=== PATIENT | male | born 1965 | race Caucasian/White ===

== ENCOUNTER 2023-06-22 08:58 | Observation (INO) ==
--- NOTE | 2023-05-27 12:52 | PAT Medication Instructions ---
Medication Instructions Date of Service May 27, 2023 Home Medications amlodipine 10 mg tablet 10 mg PO QPM ascorbic acid (vitamin C) 1,000 mg tablet (Vitamin C) 1 g PO QAM aspirin 81 mg capsule 81 mg PO QAM cartilage 40 mg-collagen II 10 mg-boron 5 mg-hyaluronate 3.3 mg tablet ([facility]) 1 tab PO QAM cholecalciferol (vitamin D3) 25 mcg (1,000 unit) tablet (Vitamin D3) 25 mcg PO QAM coQ10 (ubiquinol) 200 mg capsule 200 mg PO Q OTHER DAY gabapentin 800 mg tablet 800 mg PO TID PRN Pain methocarbamol 750 mg tablet 750 mg PO TID PRN Muscle Spasm multivitamin 1 tab PO QAM omega 4-ojb-rok-fish oil 300 mg-1,000 mg capsule (Fish Oil) 1 cap PO Q OTHER DAY saw palmetto 450 mg capsule 450 mg PO Q OTHER DAY vitamin C 45 mg-zinc citrate 3.75 mg-elderberry 50 mg chewable tablet ([facility]) 2 tab PO QAM STOP taking 2 weeks before surgery omega 6-azn-mon-fish oil 300 mg-1,000 mg capsule (Fish Oil) 1 cap PO Q OTHER DAY saw palmetto 450 mg capsule 450 mg PO Q OTHER DAY vitamin C 45 mg-zinc citrate 3.75 mg-elderberry 50 mg chewable tablet ([facility]) 2 tab PO QAM cartilage 40 mg-collagen II 10 mg-boron 5 mg-hyaluronate 3.3 mg tablet ([facility]) 1 tab PO QAM coQ10 (ubiquinol) 200 mg capsule 200 mg PO Q OTHER DAY DO NOT take the morning of surgery ascorbic acid (vitamin C) 1,000 mg tablet (Vitamin C) 1 g PO QAM cholecalciferol (vitamin D3) 25 mcg (1,000 unit) tablet (Vitamin D3) 25 mcg PO QAM multivitamin 1 tab PO QAM Take morning of surgery With a small sip of water, OTHERWISE NOTHING TO EAT OR DRINK AFTER MIDNIGHT: aspirin 81 mg capsule 81 mg PO QAM (unless surgeon directed otherwise) gabapentin 800 mg tablet 800 mg PO TID PRN Pain methocarbamol 750 mg tablet 750 mg PO TID PRN Muscle Spasm (if needed) Take evening before surgery amlodipine 10 mg tablet 10 mg PO QPM gabapentin 800 mg tablet 800 mg PO TID PRN Pain methocarbamol 750 mg tablet 750 mg PO TID PRN Muscle Spasm (if needed) Other Notes If you have any questions please call us at [phone] or [phone] or [phone] or [phone]
--- NOTE | 2023-06-03 11:33 | Anesthesiology Consultation ---
Date of Service June 03, 2023 Assessment & Plan (1) Encounter for pre-operative examination: Chart Review Chart Review: Acceptable Risk for Surgery (pending surgeon ordered PCP clearance ) and Patient seen in Pre Admission Testing - Awaiting PCP clearance 06/08/23 ([facility]- Dr. Demetrius Smith)- please fax preop testing to PCP per patient request - Patient is NOT an ideal OPJ candidate (currently 23 hour observation) Per PAT appt on 06/03/23, no recent illness/disease exposures, illness related symptoms, or recent illness/disease positive tests. Will leave to surgeon's discretion if preop Covid testing needed Teaching & Discussion Pre-Anesthesia Teaching/Discussion Notes: Instructed NPO after midnight before surgery,except medications with 15 cc of water. Medication instructions provided according to the PAT guidelines. History Surgery Operation Date: 06/22/23 07:00 Proposed Procedures p Right Total Hip Arthroplasty With Dual Mobility Implants - Vince Marvin MD Height/Weight Height: 5 ft 11 in Weight: 151.5 kg Allergies Allergy/AdvReac Type Severity Reaction Status Date / Time No Known Allergies Allergy Verified 05/23/23 15:01 Medications Home Medications Medication Instructions Recorded Confirmed Last Taken amlodipine 10 mg tablet 10 mg PO QPM 05/23/23 05/23/23 Unknown ascorbic acid (vitamin C) 1,000 mg 1 g PO QAM 05/23/23 05/23/23 Unknown tablet (Vitamin C) aspirin 81 mg capsule 81 mg PO QAM 05/23/23 05/23/23 Unknown cartilage 40 mg-collagen II 10 1 tab PO QAM 05/23/23 05/23/23 Unknown mg-boron 5 mg-hyaluronate 3.3 mg tablet ([facility]) cholecalciferol (vitamin D3) 25 25 mcg PO QAM 05/23/23 05/23/23 Unknown mcg (1,000 unit) tablet (Vitamin D3) coQ10 (ubiquinol) 200 mg capsule 200 mg PO Q OTHER DAY 05/23/23 05/23/23 Unknown gabapentin 800 mg tablet 800 mg PO TID PRN Pain 05/23/23 05/23/23 Unknown methocarbamol 750 mg tablet 750 mg PO TID PRN Muscle Spasm 05/23/23 05/23/23 Unknown multivitamin 1 tab PO QAM 05/23/23 05/23/23 Unknown omega 7-kya-pdv-fish oil 300 1 cap PO Q OTHER DAY 05/23/23 05/23/23 Unknown mg-1,000 mg capsule (Fish Oil) saw palmetto 450 mg capsule 450 mg PO Q OTHER DAY 05/23/23 05/23/23 Unknown vitamin C 45 mg-zinc citrate 3.75 2 tab PO QAM 05/23/23 05/23/23 Unknown mg-elderberry 50 mg chewable tablet ([employer]) Past Medical History Medical History History of COVID-19 09/2021--mild symptoms, no symptoms now Hypertension Morbid obesity with BMI of 45.0-49.9, adult Exercise / Class Metabolic Activity III < 4 Walking/Shop/Light housework (no chest pain or SOB with flat surface ambulation - uses cane outside and in public for support ) Past Family History Family History Other No family history of adverse response to anesthesia Past Surgical History Surgical History History of arthroscopy of knee History of surgery on wrist Past Anesthesia History No Hx of Anesthesia Complications and No Family Hx of Anesthesia Complications History of PONV No Hx of PONV and No Hx of Motion Sickness Social History Smoking Status: Never smoker Do You Dip or Chew Tobacco: No Hx Alcohol Use: No Hx Substance Use: No substance use type: does not use Review of Systems Patient denies chest pain, shortness of breath, dyspnea on exertion, reflux, cough, wheezing, palpitations. No hx of seizures, stroke, OR, apnea/snoring. No hx of blood clots or blood transfusions Physical Exam Vital Signs VITALS BP 120/77 P 80 TEMP 98.2 SP02 96% RESP 16 Constitutional no acute distress ENMT Mouth: no TMJ clicking Thyromental Distance: > or= 3.5 Finger Breadths (4.0) Mallampati Class: I Caps to side teeth/molars Neck + limited neck extension (mild) Respiratory normal respiratory effort; no respiratory distress Auscultation: lungs clear to auscultation bilaterally; no wheezes Cardiovascular Rate/Rhythm: regular rate and regular rhythm Heart Sounds: no murmur Vessels: no carotid bruit Musculoskeletal Spine: no pain with cervical ROM Extremities: extremities normal to inspection Psychiatric Orientation: alert Lab Results Anesthesia Preop Results Results Anesthesia Widget: WBC 8.85 K/ul (4.8-10.8) 06/03/23 Hgb 14.3 g/dl (14.0-18.0) 06/03/23 Hct 42.3 % (42.0-52.0) 06/03/23 Plt 341 K/uL (130-400) 06/03/23 Na 140 mmol/L (136-145) 06/03/23 K 4.4 mmol/L (3.5-5.1) 06/03/23 Cl 106 mmol/L (98-107) 06/03/23 CO2 27 mmol/L (21-32) 06/03/23 BUN 18 mg/dl (6-23) 06/03/23 Creat 0.74 mg/dl (0.6-1.4) 06/03/23 Glucose Level 98 mg/dl (70-99(Fasting)) 06/03/23 PT 10.7 Seconds (9.0-12.0) 06/03/23 PTT 28 Seconds (21-31) 06/03/23 INR 1.0 (0.9-1.1) 06/03/23 Urine Color Yellow 06/03/23 Urine Appearance Turbid (Clear) A 06/03/23 Urine pH 7.0 (4.5-7.5) 06/03/23 Urine Specific [place] 1.018 (1.000-1.030) 06/03/23 Urine Protein 1+ (Negative) H 06/03/23 Urine Glucose (UA) Negative (Negative) 06/03/23 Urine Ketones Negative (Negative) 06/03/23 Urine Blood 1+ (Negative) H 06/03/23 Urine Nitrite Negative (Negative) 06/03/23 Urine Bilirubin Negative (Negative) 06/03/23 Urine Urobilinogen Negative (Negative) 06/03/23 Urine Leukocyte Esterase 3+ (Negative) H 06/03/23 Urine WBC (Auto) >50 /hpf (0-5) H 06/03/23 Urine RBC (Auto) >20 /hpf (0-2) H 06/03/23 Urine Hyaline Casts (Auto) 0-2 /lpf (0-2) 06/03/23 Urine Epithelial Cells (Auto) 0-2 /hpf (0-2) 06/03/23 Urine Bacteria (Auto) 2+ (None Seen) H 06/03/23 Blood Type A Negative 06/03/23 Antibody Screen NEGATIVE 06/03/23 Testing Laboratory Results Surgeon's office informed of abnormal UA - will leave to surgeon's discretion with how to proceed/if treatment needed Electrocardiogram Date: 06/03/23 Findings: + NSR @ (75bpm ) Normal EKG per cardio Chest X-Ray Date: 06/03/23 Findings: + NAD
[~2023-06-22 08:58] MED LIST: BUPIVACAINE 0.5 % 5 MG/1 ML PF 10ML VIAL ONE
--- NOTE | 2023-06-22 09:07 | History & Physical Bridge Note ---
Date of Service June 22, 2023 History & Physical Bridge Note I have examined the patient, reviewed the History & Physical and in the interval since the performance of the History & Physical I have noted the following changes of clinical significance: consent and site verified.no changes noted
[2023-06-22] MEDS ORDERED: fentaNYL citrate PF 100 MCG/2 ML VIAL ONE ×2 (09:38→11:46)
[2023-06-22] MEDS ORDERED: PROPOFOL IV EMULSION 10 MG/ML 20 ML VIAL IV ONE ×4 (09:42→13:30)
[2023-06-22] MEDS: LR 500ML BOLUS, THEN 15ML/HR IV SCH (10:15)
[2023-06-22] MEDS: LR 60ML/HR IV SCH (10:16)
[2023-06-22] MEDS ORDERED: ATROPINE SULFATE 0.1 MG/ML 10ML SYR IV PRN (10:39)
[2023-06-22] MEDS ORDERED: ePHEDrine sulfate 50 MG/ML AMP IV PRN (10:39)
[2023-06-22] MEDS ORDERED: PROMETHAZINE HCL 6.25 MG in SODIUM CHLORIDE 0.9% 50 ML IV PRN (10:39)
[2023-06-22] MEDS ORDERED: MIDAZOLAM HCL 1 MG/ML 2ML VIAL ONE (10:55)
[2023-06-22] MEDS: ACETAMINOPHEN 500 MG TAB PO PRN (10:58)
[2023-06-22] MEDS: TRANEXAMIC ACID 1,000 MG **IV Pre-op IV SCH (10:58)
[2023-06-22] MEDS: ACETAMINOPHEN 500 MG TAB ONE (11:00)
[2023-06-22] MEDS: ceFAZolin 3000MG 3,000 MG/72.5 ML BAG IV SCH (11:35)
[2023-06-22] MEDS ORDERED: PHENYLEPHRINE 100MCG/ML 10ML SYR IV ONE (11:43)
[2023-06-22] MEDS ORDERED: ePHEDrine sulfate 50 MG/5 ML SYR ONE (11:43)
[2023-06-22] MEDS ORDERED: KETAMINE HCL INJ 50 MG/ML 10 ML VIAL ONE (11:52)
[2023-06-22] MEDS ORDERED: GLYCOPYRROLATE 0.2 MG/ML VIAL ONE (11:55)
[2023-06-22] MEDS: TRANEXAMIC ACID 1,000 MG **IV Intra-op IV SCH (13:13)
[2023-06-22] MEDS: ROPIVACAINE 0.5% HCL/PF 246 MG, Ketorolac (*for OR use only*) 30 MG, EPINEPHrine 30MG/3... INFIL SCH (13:31)
--- NOTE | 2023-06-22 13:42 | Post Operative Brief Note ---
Immediate Post Op Note v1 Date of Surgery June 22, 2023 Pre & Post Diagnosis Operation Date: 06/22/23 10:40 Pre-Op Diagnosis: Right Hip Degenerative Joint Disease Post-Op Diagnosis: Right Hip Degenerative Joint Disease I identified the patient and participated in the time-out.: Yes Procedure Operation Date: 06/22/23 10:40 Actual Procedures p Right Total Hip Arthroplasty With Dual Mobility Implants, uncemented(Right) - Vince Marvin MD Surgeon Vince Marvin MD Metal Window Screen Assembler LESTER/Navjot Estimated Blood Loss 300 Findings Consistent with Post-Op Diagnosis Severe osteoarthritis marked loose bodies osteochondral and the joint was huge labral tear incarcerated in the joint grade 4 disease throughout right hip Fluids See anesthesia report Complications None
--- NOTE | 2023-06-22 13:48 | Operative Report ---
Post Operative Report Pre & Post Diagnosis Operation Date: 06/22/23 10:40 Pre-Op Diagnosis: Right Hip Degenerative Joint Disease Post-Op Diagnosis: Right Hip Degenerative Joint Disease I identified the patient and participated in the time-out.: Yes Procedure Operation Date: 06/22/23 10:40 Actual Procedures p Right Total Hip Arthroplasty With Dual Mobility Implants, uncemented(Right) - Vince Marvin MD Surgeon Vince Marvin MD Mate First LESTER/Navjot Estimated Blood Loss 300 Findings Consistent with Post-Op Diagnosis Severe osteoarthritis marked loose bodies large incarcerated labral tear grade 4 disease throughout right hip Specimens Bone pathology Drains None Complications None Indications Severe pain marked obstruction by x-ray Description of Procedure After the patient was appropriate notified site verified consent verified antibiotics confirmed to be given the right lower extremity was prepped and draped use routine fashion of the patient was carefully positioned in the left lateral decubitus position padding all areas assessed due to his large size. This case is a high BMI case and there is a modified high complexity case m odifier 22. This required an extra amount of time multiple assistance and extra retractors. He also had severe disease with marked contracture and then a very poor stiff hip. A large incision was made based on the size of the patient. Full- thickness flaps raised IT band and gluteus lenin fascia was incised from the gluteus lenin insertion distally all the way up to 3 to 4 cm above the hip joint. Full-thickness flaps raised care taken to palpate the sciatic nerve deep retractor placed. It was leg was quite large the subcutaneous layer was quite thick. Short external rotators were identified and released they are quite contracted the short hip capsule was quite contracted was released the hip was dislocated. Femoral neck was resected. Capsule was released anteriorly and posteriorly off the acetabulum and off the femoral neck. Retractors placed serial reaming carried up above. Again there was marked obstruction of the labrum was incarcerated in the joint there is multiple osteochondral loose bodies grade 4 disease throughout the acetabulum and femoral neck. Serial reaming carried up to 54 to 54 cup impacted in appropriate anteversion inclination and a 6.5 x 30 screw was placed with excellent purchase. A trial reduction was carried out with a standard liner. Femur was then flexed internally rotated. Femur was then broached up to a size 6 and a size 6 trial carried out. Due to the fact that we can get a 8.5 neck length then we decided to transition the standard liner to a dual mobility based on the size. Once all this the trial implants were removed at the dual the area was irrigated with Betadine and Pulsavac the whole pouncing lathe operator seated and a dual mobility liner placed. The size 6 high offset stem with neck was impacted into position and then the 47 x 28 bipolar +8.5 ceramic head was placed. Reduction was carried out there was excellent stability in all planes the leg lengths were equal. The wound was irrigated with Betadine Pulsavac and then the capsule closed with #2 Vicryl short external rotators with the same the deep gluteus lenin and IT band fascia with #2 Vicryl the deep fat with #2 Vicryl to superficial fat with 2-0 Vicryl the skin with clips and retention sutures with 3-0 Prolene. Propria dressing applied the patient transferred recovery in satisfactory addition having tolerated the procedure well. EBL was 300 cc crystalloid per anesthesia summary of implants size 54 acetabular shell sector cup 36 x 6.5 screw dome cover 54 x 47 liner 6 high offset collared 47 x 28 bipolar 28+8.5 head these are all DePuy J&J implants. DVT prophylaxis start tomorrow. I attest to the content of the Intraoperative Record and any orders documented therein. Any exceptions are noted below.
--- NOTE | 2023-06-22 13:51 | Discharge Summary ---
Date of Service June 23, 2023 Principal Diagnosis Severe osteoarthritis right hip Discharge Data Allergies Allergy/AdvReac Type Severity Reaction Status Date / Time No Known Allergies Allergy Verified 06/22/23 09:39 Vaccinations None Consultations None Procedures Performed Operation Date: 06/22/23 10:40 Actual Procedures p Right Total Hip Arthroplasty With Dual Mobility Implants, uncemented(Right) - Vince Marvin MD Ordered Studies X-rays Hospital Course (1) Status post right hip replacement: Total Time Total Time Spent Total Time Spent (In Minutes): 5 Discharge Plan Discharge Items Reason For Visit: POST SURGICAL CARE Discharge Diagnosis: Same Condition on Discharge: Good Activity: Per Instructions section Lifting: Wait until after follow-up appointment Bathing: Keep incision dry Sexual Activity: Wait until after follow-up appointment Exercise/Sports: Wait until after follow-up appointment Weightbearing Comment: 50% as tolerated. Call non-emergency contact if: your temperature is above 101.5, your wound has increased redness, your wound has increased drainage and your wound pain has increased Follow-up/Referrals: PCP,NO [Primary Care Provider] - Addtl Attending Provider Instructions: DIET: * Resume previous diet. MEDICATIONS: * Please take your prescriptions as instructed at your pre-op appointment and/or see medication discharge instructions listed above. * If concerns develop, call your physician's office at . SPECIAL CARE INSTRUCTIONS: * Ice/Elevate as instructed. * Keep dressing clean, dry, intact. * Your surgical extremity may be discolored due to prepping agents used on the skin. A bluish-green tint is a normal variant and should not cause alarm. Call your doctor at [phone] if: * Temperature above 101 degrees * Pain not relieved by pain medicine ordered * There is increased drainage or redness from any incision * You have any unanswered questions, problems or concerns. FOLLOW UP VISIT: * If not already scheduled, please call the office at to schedule a follow-up appointment. Pending Studies at Discharge: Yes (Bone pathology) Stand-Alone Forms: My [facility] Medications and DC Order Prescriptions: No Action multivitamin Tablet 1 tab PO QAM ascorbic acid (vitamin C) [Vitamin C] 1,000 mg Tablet 1 g PO QAM methocarbamol 750 mg Tablet 750 mg PO TID PRN (Reason: Muscle Spasm) gabapentin 800 mg Tablet 800 mg PO TID PRN (Reason: Pain) amlodipine 10 mg Tablet 10 mg PO QPM saw palmetto 450 mg Capsule 450 mg PO Q OTHER DAY Patient Comments: takes in the am Rx Instructions: give with food (meal/snack) cholecalciferol (vitamin D3) [Vitamin D3] 25 mcg (1,000 unit) Tablet 25 mcg PO QAM omega 8-nti-ynz-fish oil [Fish Oil] 300-1,000 mg Capsule 1 cap PO Q OTHER DAY Patient Comments: takes in the am coQ10 (ubiquinol) 200 mg Capsule 200 mg PO Q OTHER DAY Joint Health 40-10-5-3.3 mg Tablet 1 tab PO QAM aspirin 81 mg Capsule 81 mg PO QAM Elderberry [facility] 45-3.75-50 mg Tablet,Chewable 2 tab PO QAM Admission Data Admit Date/Time: 06/22/23 13:57 Attending Provider: Vince Marvin Admit Provider: Vince Marvin Primary Care Provider: PCP,NO Other Providers: [facility]; [facility]
--- NOTE | 2023-06-22 13:51 | Operative Report ---
Post Operative Report Pre & Post Diagnosis Operation Date: 06/22/23 10:40 Pre-Op Diagnosis: Right Hip Degenerative Joint Disease Post-Op Diagnosis: Right Hip Degenerative Joint Disease I identified the patient and participated in the time-out.: Yes Procedure Operation Date: 06/22/23 10:40 Actual Procedures p Right Total Hip Arthroplasty With Dual Mobility Implants, uncemented(Right) - Vince Marvin MD Surgeon AISHWARYA Marvin MD Marshmallow Machine Worker LESTER/Navjot DA SILVA Estimated Blood Loss 300 Findings Consistent with Post-Op Diagnosis see operative report Specimens see operative report Drains none Complications none Disposition Accompanied Patient To Recovery: Yes Indications This 58 year old male presented to the office with complaints of persisting right hip pain. He had tried conservative care measures without improvement. He elected to proceed with surgical intervention after being educated about potential risks and outcomes. Preoperative imaging was obtained. Description of Procedure The patient was administered a spinal anesthetic and nerve block and was taken to the operating room where he was given sedation. He was prepped and draped in the usual sterile fashion. Please see Dr. Marvin's operative report for specifics of the procedure. I was present for the entire case from initial patient positioning through final wound closure. Assistance was provided in tissue retraction, hemostasis, trial implant placement, final implant placement, and final wound closure. The patient was taken to the recovery room in satisfactory condition. I attest to the content of the Intraoperative Record and any orders documented therein. Any exceptions are noted below.
--- NOTE | 2023-06-22 13:51 | Orthopedic Progress Note ---
Date of Service June 22, 2023 Subjective Tolerated right total replacement with spinal. Denies any chest pain shortness of breath fever chills nausea vomiting headache. Vital signs are stable he is afebrile. Neurovascular check is limited by spinal but shows active dorsiflexion of the ankle and toes as well as plantarflexion. Wound dressing clean dry and intact. X-rays pending. Family contacted. Results & Data Vital Signs (Past 12 Hours) Vital Signs Temp Pulse Resp BP Pulse Ox O2 Del Method 06/22/23 09:32 37.4 C 90 20 136/80 95 Room Air
--- NOTE | 2023-06-22 13:55 | Operative Report ---
Post Operative Report Pre & Post Diagnosis Operation Date: 06/22/23 10:40 Pre-Op Diagnosis: Right Hip Degenerative Joint Disease Post-Op Diagnosis: Right Hip Degenerative Joint Disease I identified the patient and participated in the time-out.: Yes Procedure Operation Date: 06/22/23 10:40 Actual Procedures p Right Total Hip Arthroplasty With Dual Mobility Implants, uncemented(Right) - Vince Marvin MD Surgeon Vince Marvin MD Rotor Casting Machine Operator LESTER/Navjot DA SILVA Estimated Blood Loss 300 Findings Consistent with Post-Op Diagnosis Same as postoperative diagnosis. Specimens The resected femoral head. Description of Procedure Please see detailed operative note. I attest to the content of the Intraoperative Record and any orders documented therein. Any exceptions are noted below.
--- NOTE | 2023-06-22 14:13 | XRay Report ---
XR pelvis 1-2V routine HISTORY: 58 years-old Male S/P R ELIEZER right hip arthroplasty COMPARISON: 02/09/2023 TECHNIQUE: AP view the pelvis FINDINGS: Right hip arthroplasty demonstrates satisfactory alignment. Lateral skin joss with expected postop erative soft tissue swelling and deep tissue air. No acute fracture or unexpected opaque foreign body . Severe left hip osteoarthritis. IMPRESSION: Right hip arthroplasty with expected postoperative changes. ACT 112: Negative or not required by law. The above report was generated using voice recognition software. It may contain grammatical, syntax o r spelling errors. Electronically signed by: Best Flores M.D. 06/22/2023 2:12 PM
--- NOTE | 2023-06-22 14:17 | Orthopedic Progress Note ---
Date of Service June 22, 2023 Subjective Postop check in recovery room patient is awake and alert denies chest pain shortness of breath fever chills nausea or headache. Vital signs are stable he is afebrile. Neurovascular check femoral sciatic nerve is normal. Wound dressing clean dry and intact. Postop x-rays look excellent. Attempted to contact going to voicemail. He states that he will try to get her everything is fine. DVT prophylaxis per protocol. Results & Data Vital Signs (Past 12 Hours) Vital Signs Temp Pulse Pulse Resp BP Pulse Ox O2 Del Method 06/22/23 14:05 66 12 113/66 96 Oxymask 06/22/23 13:55 70 12 104/63 98 Oxymask 06/22/23 13:47 36.5 C 77 16 112/75 95 Oxymask 06/22/23 09:32 37.4 C 90 20 136/80 95 Room Air O2 Flow Rate 06/22/23 14:05 5 06/22/23 13:55 10 06/22/23 13:47 10 06/22/23 09:32
[2023-06-22] MEDS: HYDROmorphone INJ 2 MG/ML SYR/VIAL IV PRN (14:25)
[2023-06-22] MEDS: SODIUM CHLORIDE 0.9% 1,000 ML IV SCH (16:10)
--- NOTE | 2023-06-22 16:20 | Anesthesiology Progress Note ---
Date of Service June 22, 2023 Anesthesia Post Procedure Vital Signs Vital Signs: Temp Pulse Pulse Resp BP Pulse Ox O2 Del Method 06/22/23 15:45 60 14 119/71 98 Room Air 06/22/23 15:30 62 12 109/69 99 Room Air 06/22/23 15:15 72 14 122/71 97 Room Air 06/22/23 15:05 36.4 C L 62 12 119/77 96 Room Air 06/22/23 14:55 60 12 118/67 99 Room Air 06/22/23 14:45 55 L 12 119/73 99 Room Air 06/22/23 14:35 67 12 144/71 H 99 Room Air 06/22/23 14:25 65 14 124/72 97 Room Air 06/22/23 14:15 62 12 120/76 97 Oxymask 06/22/23 14:05 66 12 113/66 96 Oxymask 06/22/23 13:55 70 12 104/63 98 Oxymask 06/22/23 13:47 36.5 C 77 16 112/75 95 Oxymask 06/22/23 09:32 37.4 C 90 20 136/80 95 Room Air O2 Flow Rate 06/22/23 15:45 06/22/23 15:30 06/22/23 15:15 06/22/23 15:05 06/22/23 14:55 06/22/23 14:45 06/22/23 14:35 06/22/23 14:25 06/22/23 14:15 5 06/22/23 14:05 5 06/22/23 13:55 10 06/22/23 13:47 10 06/22/23 09:32 Pain Intensity Left Shoulder: Pain Intensity: 5 Right Hip: Pain Intensity: 4 Notes Mental Status: alert / awake / arousable Patient Amnestic to Procedure: Yes Nausea / Vomiting: adequately controlled Pain: adequately controlled Airway Patency, RR, SpO2: stable & adequate BP & HR: stable & adequate Hydration State: stable & adequate Neuraxial Anesthesia: was administered and sensory block is resolving Anesthetic Complications: no major complications apparent
[2023-06-22] MEDS ORDERED: NALOXONE HCL 0.4 MG/1 ML VIAL/CARP IV PRN (16:22)
[2023-06-22] MEDS ORDERED: GABAPENTIN 800 MG TAB PO PRN (16:22)
[2023-06-22] MEDS ORDERED: VANCOMYCIN CONSULT ACTIVE PRN (16:22)
[2023-06-22] MEDS ORDERED: HYDROmorphone INJ 0.5 MG/0.5 ML SYR IV PRN (16:22)
[2023-06-22] MEDS ORDERED: oxyCODONE HCL IR 5 MG TAB (IMMEDIATE RELEASE) PO PRN (16:22)
[2023-06-22] MEDS ORDERED: ONDANSETRON INJ 2 MG/ML 2 ML VIAL IV PRN (16:22)
[2023-06-22] MEDS ORDERED: diphenhydrAMINE 50 MG/ML VIAL IV PRN (16:22)
[2023-06-22] MEDS ORDERED: bisacodyL 10 MG SUPP PR PRN (16:22)
[2023-06-22] MEDS ORDERED: METOCLOPRAMIDE HCL INJ 5 MG/ML 2 ML VIAL IV PRN (16:22)
[2023-06-22] MEDS ORDERED: MAGNESIUM HYDROXIDE SUSP 30 ML UDC PO PRN (16:22)
[2023-06-22] MEDS ORDERED: TAMSULOSIN HCL 0.4 MG CAP PO PRN (16:22)
[2023-06-22] MEDS ORDERED: METHOCARBAMOL 750 MG TABLET PO PRN (16:22)
[2023-06-22] MEDS ORDERED: ALUMINUM/MAGNESIUM SUSP 30 ML UDC PO PRN (16:22)
[2023-06-22] MEDS: ACETAMINOPHEN 500 MG TAB PO SCH (16:55)
[2023-06-22] MEDS: KETOROLAC TROMETHAMINE 15 MG/ML VIAL IV SCH (16:55)
[2023-06-22] MEDS: ASCORBIC ACID 500 MG TAB PO SCH (17:03)
[2023-06-22] MEDS: VANCOMYCIN HCL 2,000 MG in SODIUM CHLORIDE 0.9% 500 ML IV ONE (17:03)
[2023-06-22] MEDS: FERROUS GLUCONATE 324 MG TAB PO SCH (17:03)
[2023-06-22] MEDS: APIXABAN 2.5 MG TAB PO SCH (20:33)
[2023-06-22] MEDS: SENNA 8.6 MG TAB PO SCH (20:35)
[2023-06-22] MEDS: amLODIPine BESYLATE 5 MG TAB PO SCH (20:35)
[2023-06-22] MEDS: DOCUSATE SODIUM 100 MG CAP PO SCH (20:35)
[2023-06-22] MEDS: ceFAZolin 2000MG 2,000 MG/15 ML SYR IV SCH (20:36)
[2023-06-23 06:19] LABS: Basophils # (auto) 0.05 K/uL (0.00-0.20); Basophils % (auto) 0.4 %; Eosinophils # (auto) 0.06 K/uL (0.00-0.50); Eosinophils % (auto) 0.5 %; Hematocrit (blood only) 37.5 % (42.0-52.0); Hemoglobin 12.6 g/dl (14.0-18.0); Immature Granulocytes # (auto) 0.04 K/uL (0.01-0.20); Immature Granulocytes % (auto) 0.3 %; Lymphocytes # (auto) 0.91 K/uL (1.20-3.40); Lymphocytes % (auto) 6.9 %; Mean Corpuscular Hemoglobin 30.2 pg (25.0-34.0); Mean Corpuscular Hgb Conc 33.6 g/dL (32.0-36.0); Mean Corpuscular Volume 89.9 fL (80.0-100.0); Mean Platelet Volume 9.9 fL (9.4-12.4); Monocytes # (auto) 1.21 K/uL (0.11-0.59); Monocytes % (auto) 9.2 %; Neutrophils # (auto) 10.83 K/uL (1.40-6.50); Neutrophils % (auto) 82.7 %; Platelet Count 250 K/uL (130-400); RDW Coefficient of Variation 14.1 % (11.5-14.5); RDW Standard Deviation 46.5 fL (36.4-46.3); Red Blood Count 4.17 M/uL (4.70-6.10)
[2023-06-23 07:24] LABS: BUN Creatinine Ratio 21.3 (10-20); Calcium 8.3 mg/dl (8.6-10.3); Est GFR (African American) 113.3 ml/min; Est GFR (Non-African American) 97.8 ml/min; Potassium 4.6 mmol/L (3.5-5.1)
--- NOTE | 2023-06-23 07:38 | Orthopedic Progress Note ---
Date of Service June 23, 2023 Assessment & Plan Admission and Anticipated Discharge Date Admission Date: June 22, 2023 Orthopedic Progress Note Postop day 1 status post right total replacement. Doing well is no major issues was sitting up in a chair. Denies chest pain shortness of breath fever chills nausea vomiting or headache. Vital signs are stable he is afebrile. Neurovascular check femoral sciatic nerve is normal. Assessment doing well continue care pathway discharge home today after PT OT. Begin his postop anticoagulation today.
[2023-06-23] MEDS: MULTIVITAMIN TAB PO SCH (08:11)
[2023-06-23] MEDS: dexAMETHasone 10 MG in SYRINGE 0 ML IV SCH (08:11)
[2023-06-23] MEDS: ASPIRIN 81 MG ECTAB PO SCH (08:11)
--- NOTE | 2023-06-23 09:56 | Orthopedic Progress Note ---
Date of Service June 23, 2023 Assessment & Plan (1) Status post right hip replacement: Plan: The patient's dressing was changed this morning by me. A Prevena wound VAC was placed. Adequate seal was obtained. He will see me in a week for removal. Office appointment has been made for Tuesday at 3 PM Continue with ice frequently Use the walker for ambulation and standing Maintain total hip precautions. Use the JACEK hose for the next 6 weeks prescriptions for Percocet and Eliquis have been sent to his pharmacy Written discharge instructions have been provided Follow-up with me in 2 weeks as scheduled for staple removal Admission and Anticipated Discharge Date Admission Date: June 22, 2023 Subjective This 58-year-old male is seen today in his room. He is 1 day status post right total hip arthroplasty. He states he did well overnight. He describes some soreness in the leg, but otherwise is pleased. He has been out of bed several times, and has walked around the hallways twice. He has already completed PT and is awaiting OT. He denies any chest pain, shortness of breath, nausea, vomiting, or abdominal pain. He feels ready to go home. No other complaints at this point. Review of Systems Review of Systems: Unchanged from yesterday. Physical Exam Physical Exam: General: Well-developed, well-nourished, middle-aged male, in no acute distress. Sitting in a bedside chair. Alert and oriented. Complains of some discomfort in his anterior right thigh. Skin: Warm and dry with good turgor. No rashes. No significant ecchymosis or edema around the surgical incision. Postsurgical dressings are in place. Upon removal, joss and retention sutures are in place. There is mild blood on his most inner dressings. No active bleeding. Musculoskeletal: Right hip evaluation reveals supple motion for flexion as well as rotation. He is able to rise fairly easily from a chair without assistance. There is intact motor function to the right knee and ankle. Neurologic: Gross sensation is intact across the right leg by soft touch. Results & Data Vital Signs (Past 12 Hours) Vital Signs Temp Pulse Resp BP Pulse Ox O2 Del Method 06/23/23 07:51 37.0 C 78 16 152/70 H 96 Room Air 06/23/23 04:29 37.1 C 73 16 143/67 H 96 Room Air 06/23/23 02:16 37.2 C 80 16 140/78 96 Room Air 06/22/23 22:00 36.7 C 71 16 155/69 H 97 Room Air Laboratory Results CBC obtained this morning shows a white count of 13.1. H&H of 12.6 and 37.5. Platelets 250,000. PRP also obtained this morning shows normal sodium, potassium, chloride, and anion gap. BUN is 17 with creatinine 0.80. Glucose this morning 116.
--- OUTSIDE RECORDS SUMMARY | 2023-06-23 13:16 | External Medical Summary | Continuity of Care Document ---
Author Name Unknown Organization [facility] [address] [id number] Address [address] [place] [address] [id number] Encounter [facility] [id number] Date(s): 06/03/23 - 06/03/23 [facility] [address] [facility] [address] [facility] [address] [place] [address], [address] [id number] Encounter Diagnosis S/P total right hip arthroplasty(Discharge Diagnosis) - 06/03/23 Degenerative joint disease of right hip(Discharge Diagnosis) - 06/03/23 Discharge Disposition: Home or Self Care Attending Physician: AVINASH Morfin, Rashad Latham Referring Physician: MD Shavonne, Vince Titus Allergies, Adverse Reactions, Alerts No Known Allergies Medications amLODIPine 10 mg oral tablet Start: 04/04/23 8:33:00 EST, 1 tab, PO, Daily Start Date: 04/04/23 Status: Ordered ampicillin 500 mg oral capsule Start: 06/06/23 6:00:00 EDT, 1 cap, PO, qid, Disp# 28 cap, Refills: 0, start SEBAS, Pharmacy: [facility] Start Date: 06/06/23 Status: Ordered aspirin 81 mg oral capsule Start: 06/03/23 9:50:00 EDT Start Date: 06/03/23 Status: Ordered CoQ10 Start: 04/04/23 8:33:00 EST Start Date: 04/04/23 Status: Ordered Elderberry Gummies with Vitamin C and Zinc oral tablet, chewable Start: 06/03/23 9:50:00 EDT Start Date: 06/03/23 Status: Ordered EPA Fish Oil Start: 04/04/23 8:34:00 EST Start Date: 04/04/23 Status: Ordered gabapentin 800 mg oral tablet Start: 04/04/23 8:33:00 EST, 1 tab, PO, Daily Start Date: 04/04/23 Status: Ordered methocarbamol 750 mg oral tablet Start: 04/04/23 8:33:00 EST, 1 tab, PO, tid Start Date: 04/04/23 Status: Ordered multivitamin Start: 04/04/23 8:33:00 EST, 1 tab, PO, Daily Start Date: 04/04/23 Status: Ordered Saw [place] Start: 04/04/23 8:34:00 EST Start Date: 04/04/23 Status: Ordered Vitamin C Start: 04/04/23 8:33:00 EST Start Date: 04/04/23 Status: Ordered Vitamin D3 Start: 04/04/23 8:33:00 EST Start Date: 04/04/23 Status: Ordered Vitamin D3 [facility] Start: 06/03/23 9:51:00 EDT Start Date: 06/03/23 Status: Ordered Mental Status 06/03/23 Barriers to Learning one year None evide nt Mandatory Health Literacy Documentation Yes Health Literacy Communication Barriers N ever Primary Language Lao Problem List Condition Confirmation Course Effective Dates Status H ealth Status Informant UTI (urinary tract infection), bacterial Confirmed Active Osteoarthritis of right hip Confirmed Active Lumbar spinal stenosis Confirmed Active Diagnosis Diagnosis Type Effective Dates Health Status Clinical Service Informant S/P total right hip arthroplasty Discharge Diagnosis 06/03/23 Non-Specified Degenerative joint disease of right hip Discharge Diagnosis 06/03/23 Non-Specified Vital Signs Most recent to oldest [Reference Range]: 1 Height 180.5 cm (06/03/23 9:48 AM) Patient Weight 148 kg (06/03/23 9:48 AM) Body Mass Index 45.43 kg/m2 (06/03/23 9:48 AM) Temperature [36.5-37.9 DegC] 36.6 DegC (06/03/23 9:48 AM) Heart Rate 90 bpm (06/03/23 9:48 AM) Respiratory Rate 20 br/min (06/03/23 9:48 AM) Blood Pressure 130/82mmHg (06/03/23 9:48 AM) Cuff Pulse Pressure 48 mmHg (06/03/23 9:48 AM) Social History Social History Type Response Smoking Status Never smoked cigaret jesica Sex Male
== END 2023-06-23 11:44 | disposition home health service (06) ==
LOC: ASU 08:58 → 3E 08:58